=== PATIENT | male | born 1955 | race Caucasian/White ===

== ENCOUNTER 2023-12-28 13:32 | Inpatient (IN) | payer OTHER, SELFPAY ==
[2023-12-28 14:14] LABS: Absolute Basophils 0.1 K/uL (0-0.5); Absolute Eosinophils 0.2 K/uL (0-0.5); Absolute Monocytes 0.5 K/uL (0.1-1.3); Absolute Neutrophil 5.1 K/uL (1.8-8.0); Eosinophils % 2.3 % (0-4.4); MCH 31.5 pg (27.0-35.0); MCHC 34.1 g/dL (32.0-36.0); MCV 92.4 fL (80-100); MPV 8.1 fL (7.6-11.3); Monocytes % 5.9 % (3.3-12.3); Neutrophils % 64.8 % (41.7-73.7); Nucleated Red Blood Cells % 0.2 % (0-0); Platelets 224 thou/uL (152-406); RBC Red Blood Cell Count 4.76 M/uL (4.33-5.43); Red Cell Distribution Width 13.7 % (12.1-15.2)
--- NOTE | 2023-12-28 14:20 | RAD REPORT ---
EXAM DESCRIPTION: CT - Head Brain Wo Cont - 12/28/2023 2:12 pm CLINICAL HISTORY: Alteration of awareness/confusion COMPARISON: None TECHNIQUE: Computed axial tomography of the head was obtained. IV contrast was not requested. All CT scans are performed using dose optimization technique as appropriate and may include automated exposure control or mA/KV adjustment according to patient size. FINDINGS: An intracranial bleed is not seen Mild to moderate prominence of ventricles. No extra-axial fluid collection is noted. No significant hypodensity brain noted Fluid within the sinuses/ mastoids is not seen. IMPRESSION: Mild to moderate prominence of ventricles. This could be secondary to normal pressure hy drocephalus or atrophy and should correlated clinically. If patient's symptoms persist MRI of the brain would be recommended
[2023-12-28 14:28] LABS: PT Prothrombin Time 12.2 SECONDS (9.5-12.5); PTT, Activated Partial Thromb 36.9 SECONDS (24.3-36.9); Protime INR 1.11
[2023-12-28 14:39] LABS: Albumin 3.3 g/dL (3.4-5.0); Albumin/Globulin Ratio 0.8 (1.1-1.8); Anion Gap 7.4 mEq/L (5.0-15.0); Bilirubin Direct 0.1 mg/dL (0-0.2); Bilirubin Indirect, Calculated 0.5 mg/dL (0.2-0.8); Bilirubin Total 0.6 mg/dL (0.2-1.0); Globulin 3.9 g/dL (2.3-3.5); Magnesium 2.1 mg/dL (1.6-2.4); Potassium 4.4 mEq/L (3.5-5.1); Protein, Total 7.2 g/dL (6.4-8.2); Troponin High Sensitivity 7.2 pg/mL (<58.9)
--- NOTE | 2023-12-28 15:15 | RAD REPORT ---
EXAM DESCRIPTION: Kathleen Single View12/28/2023 2:51 pm CLINICAL HISTORY: Chest pain COMPARISON: none FINDINGS: The lungs appear clear of acute infiltrate. The heart is normal size IMPRESSION: No acute abnormalities displayed
[2023-12-28 15:25] LABS: Specific Gravity > 1.030 (1.005-1.030); Sqamous Epithelial None Seen /HPF (None Seen); Urine Bacteria None Seen /HPF (<20); Urine Bilirubin NEGATIVE (Negative); Urine Blood Negative (Negative); Urine Clarity Clear (Clear); Urine Color Yellow (Yellow); Urine Culture Reflex Order NOT NEEDED; Urine Glucose 1+ (Negative); Urine Ketones NEGATIVE (Negative); Urine Micro Reflex YN NO BILL MICROSCOPIC; Urine Mucus 2+ /HPF (None Seen); Urine Nitrite NEGATIVE (Negative); Urine Protein TRACE (Negative); Urine RBC <5 /HPF (None Seen); Urine Urobilinogen Normal (Normal); Urine WBC <5 /HPF (<5); Urine pH 5.5 (5.0-7.0)
[2023-12-28] MEDS ORDERED: ASPIRIN 81 MG CHEWABLE TABLET ONE (15:58)
[2023-12-28] MEDS ORDERED: FOLIC ACID 5 MG/ML VIAL ONE (16:00)
--- NOTE | 2023-12-28 16:04 | EDPHYS ---
Physician Documentation [facility] Name: Charles Trotter Age: 68 yrs Sex: Male : 1955 Arrival Date: 12/28/2023 Time: 13:32 Bed 20 Private MD: ED Physician Taylor Verdugo HPI: 12/27 14:20 This 68 yrs old Male presents to ER via EMS with complaints of AMS. sb4 12/28 08:13 daughter called EMS because she was concerned that patient was acting abnormally, sb4 moving slower than usual, couldn't do basic tasks like put on his underwear. patient has no complaints at this time, does not think he is behaving abnormally. no known history of dementia, no recent changes in medications, or any trauma. Historical: - Allergies: 12/27 13:39 No Known Allergies; db - PMHx: 13:39 Diabetes mellitus; db - Immunization history:: Adult Immunizations unknown. - Infectious Disease History:: Denies. - Social history:: Smoking status: Patient denies any tobacco usage or history of. ROS: 12/28 08:13 Constitutional: Negative for fever, chills, and weight loss, sb4 All other systems are negative, Exam: 08:13 Constitutional: This is a well developed, well nourished patient who is awake, alert, sb4 and in no acute distress. Head/Face: Normocephalic, atraumatic. Eyes: Extra-ocular motions intact. Periorbital areas with no swelling, redness, or edema. ENT: Mucous membranes moist. Cardiovascular: Regular rate and rhythm with a normal S1 and S2. Respiratory: Lungs have equal breath sounds bilaterally, clear to auscultation and percussion. No rales, rhonchi or wheezes noted. No increased work of breathing, no retractions or nasal flaring. Abdomen/GI: Soft, non-tender, no distension. Back: No spinal tenderness. No costovertebral tenderness. Full range of motion. Skin: Warm, dry with normal turgor. Normal color with no rashes, no lesions, and no evidence of cellulitis. MS/ Extremity: Pulses equal, no cyanosis. Neurovascular intact. Full, normal range of motion. Neuro: Awake and alert, GCS 15, oriented to person, place, time, and situation. Motor strength 5/5 in all extremities. Sensory grossly intact. Vital Signs: 12/27 13:30 BP 142 / 80; Pulse 89; Resp 18; Temp 98.3(O); Pulse Ox 100% ; Weight 99.79 kg; Height 5 db ft. 8 in. ; 14:13 BP 125 / 78; Pulse 84; Resp 18; Pulse Ox 99% on R/A; db 15:30 BP 120 / 70; Pulse 83; Resp 14; Pulse Ox 100% on R/A; db 17:00 BP 132 / 71; Pulse 79; Resp 16; Pulse Ox 98% on R/A; db 13:30 Body Mass Index 33.45 (99.79 kg, 172.72 cm) db NIH Stroke Scale Scores: 14:00 NIHSS Score: 0 db MDM: 13:43 Patient medically screened. sb4 15:55 Management of patient was discussed with the following: Accounting Assistant: Dr. Olivas, 4 recommends admission for stroke rule out. 12/28 08:13 Data reviewed: vital signs, nurses notes, EMS record, lab test result(s), EKG, sb4 radiologic studies, I have discussed the patient's presentation/case with the attending Emergency Department Physician; and as a result, I will discharge patient. Consideration of Admission/Observation Patient was admitted/placed on observation. Historians other than the Patient: EMS: EMS. Daughter/Son: daughter. Counseling: I had a detailed discussion with the patient and/or guardian regarding the historical points, exam findings, and any diagnostic results supporting the discharge/admit diagnosis, lab results, radiology results, the need for further work-up and treatment in the hospital. 12/27 13:49 Order name: Basic Metabolic Panel; Complete Time: 14:39 sb4 12/27 13:49 Order name: CBC with Diff; Complete Time: 14:18 sb4 12/27 13:49 Order name: Hepatic Function; Complete Time: 14:39 sb4 12/27 13:49 Order name: Magnesium; Complete Time: 14:39 sb4 12/27 13:49 Order name: Protime (+inr); Complete Time: 14:29 sb4 12/27 13:49 Order name: Ptt, Activated; Complete Time: 14:29 sb4 12/27 13:49 Order name: Troponin High Sensitivity; Complete Time: 14:39 sb4 12/27 14:30 Order name: UAM; Complete Time: 15:27 sb4 12/27 16:22 Order name: Creatine Phosphokinase EDID 12/27 16:22 Order name: Creatine Phosphokinase EDID 12/27 16:22 Order name: Lipid Profile EDMS 12/27 16:22 Order name: Lipid Profile EDMS 12/27 17:55 Order name: Glucose, Ancillary Testing; Complete Time: 17:56 EDMS 12/27 13:49 Order name: CT Head Brain wo Cont; Complete Time: 14:21 sb4 12/27 13:49 Order name: Chest Single View XRAY; Complete Time: 15:18 sb4 12/27 15:59 Order name: Head Angio CT sb4 12/27 16:22 Order name: Echo with Doppler EDMS 12/27 16:22 Order name: Stroke Protocol EDID 12/27 16:22 Order name: Carotid Artery Bilateral EDMS 12/27 17:57 Order name: CT; Complete Time: 17:59 EDMS 12/27 17:59 Order name: CT; Complete Time: 17:59 EDMS 12/27 13:49 Order name: EKG; Complete Time: 13:49 sb4 12/27 16:22 Order name: IRF Screen EDID 12/27 13:49 Order name: Cardiac monitoring; Complete Time: 13:55 sb4 12/27 13:49 Order name: EKG - Nurse/Tech; Complete Time: 13:50 sb4 12/27 13:49 Order name: IV Saline Lock; Complete Time: 14:24 sb4 12/27 13:49 Order name: Labs collected and sent; Complete Time: 14:24 sb4 12/27 13:49 Order name: NPO; Complete Time: 14:24 sb4 12/27 13:49 Order name: O2 Per Protocol; Complete Time: 13:55 sb4 12/27 13:49 Order name: O2 Sat Monitoring; Complete Time: 13:55 sb4 EC/28 13:50 Rate is 86 beats/min. Rhythm is regular, Normal Sinus Rhythm with Right bundle branch sb4 block. Left axis deviation noted. WA interval is normal at 184 msec. QRS interval is normal at 124 msec. QT interval is normal at 382 msec. Interpreted by me. Reviewed by me. Administered Medications: 16:02 Drug: Aspirin PO 81 mg PO once Route: PO; db 18:50 Follow up: Response: No adverse reaction db 16:02 Drug: foLIC Acid IVPB 1 mg IVPB once Route: IVPB; Site: left antecubital; db 18:50 Follow up: Response: No adverse reaction; IV Status: Completed infusion db Disposition: 18:01 I reviewed the patient's care provided by the Advanced Practice Provider and agree with gb1 the diagnosis and treatment plan. Disposition Summary: 12/28/23 16:03 Hospitalization Ordered Notes: Hospitalization Status: Observation sb4 Provider: Guerline Lea sb4 Location: Telemetry/MedSurg (observation) sb4 Condition: Fair sb4 Problem: new sb4 Symptoms: are unchanged sb4 Bed/Room Type: Standard sb4 Room Assignment: 403(12/28/23 17:58) ja1 Diagnosis - CVA rule out sb4 Forms: - Medication Reconciliation Form sb4 - SBAR form sb4 - Leadership Thank You Letter sb4 NIH Stroke Scale - NIH Stroke Score Date: 12/28/2023 Time: 14:00 Total Score = 0 10. Dysarthria (speech clarity - read or repeat words) - 0(Normal) 11. Extinction and Inattention (visual/tactile/auditory/spatial/personal) - 0(No abnormality) 1a. Level of Consciousness (LOC) - 0(Alert) 1b. Level of Consciousness (LOC) (Month \T\ Age) - 0(Both) 1c. LOC Commands (Open \T\ Closes Eyes/Mounter Clarinets) - 0(Both) 2. Best Gaze (Lateral Gaze Paresis) - 0(Normal) 3. Visual Field Loss - 0(No visual loss) 4. Facial Palsy - 0(Normal) 5a. Left Arm: Motor (10-second hold) - 0(No drift) 5b. Right Arm: Motor (10-second hold) - 0(No drift) 6a. Left Leg: Motor (5-second hold - always test supine) - 0(No drift) 6b. Right Leg: Motor (5-second hold - always test supine) - 0(No drift) 7. Limb Ataxia (finger/nose \T\ heel/jason - test with eyes open) - 0(Absent) 8. Sensory Loss (pinprick arms/legs/face) - 0(Normal) 9. Best Language: Aphasia (description/naming/reading) - 0(No aphasia) Initials: db Signatures: Dispatcher [employer] EDMS Gunner Arteaga RN RN ja1 Fartun Balbuena, RN RN Mercy De La O PA-C PA-C sb4 Taylor Verdugo MD MD gb1 Corrections: (The following items were deleted from the chart) 13:49 13:49 BASIC METABOLIC PANEL+C.LAB.BRZ ordered. EDMS EDMS 13:49 13:49 CBC+H.LAB.BRZ ordered. EDMS EDMS 13:49 13:49 HEPATIC FUNCTION+C.LAB.BRZ ordered. EDMS EDMS 13:49 13:49 MAGNESIUM+C.LAB.BRZ ordered. EDMS EDMS 13:49 13:49 PROTIME (+INR)+COAG.LAB.BRZ ordered. EDMS EDMS 13:49 13:49 PTT, ACTIVATED+COAG.LAB.BRZ ordered. EDMS EDMS 13:49 13:49 Troponin High Sensitivity+C.LAB.BRZ ordered. EDMS EDMS 15:59 15:59 Neck Angio+CT.RAD.BRZ ordered. EDMS EDMS 17:58 16:03 sb4 ja1
--- NOTE | 2023-12-28 16:04 | ER ---
Nurse's Notes [facility] Name: Charles Trotter Age: 68 yrs Sex: Male : 1955 Arrival Date: 12/28/2023 Time: 13:32 Bed 20 Private MD: Diagnosis: CVA rule out Presentation: 12/27 13:30 Chief complaint: EMS states: SLIGHT LOC, SLOWER TODAY, STRUGGLING TO GET DRESSED PER db DAUGHTER. PT TAKING OZEMPIC AND HAS HAD DIARRHEA. DENIES PAIN. Coronavirus screen: Vaccine status: Patient reports being unvaccinated. Client denies travel out of the [place] in the last 14 days. At this time, the client does not indicate any symptoms associated with coronavirus-19. Ebola Screen: Patient negative for fever greater than or equal to 101.5 degrees Fahrenheit, and additional compatible Ebola Virus Disease symptoms Patient denies exposure to infectious person. Patient denies travel to an Ebola-affected area in the 21 days before illness onset. No symptoms or risks identified at this time. Initial Sepsis Screen: Does the patient meet any 2 criteria? No. Patient's initial sepsis screen is negative. Does the patient have a suspected source of infection? No. Patient's initial sepsis screen is negative. Initial Sepsis Screen: Does the patient meet any 2 criteria?. Risk Assessment: Do you want to hurt yourself or someone else? Patient reports no desire to harm self or others. Onset of symptoms was December 28, 2023. 13:30 Method Of Arrival: EMS: [facility] db 13:30 Acuity: SRINATH 2 db Triage Assessment: 13:39 General: Appears in no apparent distress. comfortable, Behavior is calm, cooperative. db Pain: Denies pain. Neuro: Level of Consciousness is awake, alert, obeys commands, Oriented to person, place, time, situation. Historical: - Allergies: 13:39 No Known Allergies; db - PMHx: 13:39 Diabetes mellitus; db - Immunization history:: Adult Immunizations unknown. - Infectious Disease History:: Denies. - Social history:: Smoking status: Patient denies any tobacco usage or history of. Screenin:39 [facility] ED Fall Risk Assessment (Adult) History of falling in the last 3 months, db including since admission No falls in past 3 months (0 pts) Confusion or Disorientation No (0 pts) Intoxicated or Sedated No (0 pts) Impaired Gait No (0 pts) Mobility Assist Device Used No (0 pt) Altered Elimination No (0 pt) Score/Fall Risk Level 0 - 2 = Low Risk Oriented to surroundings, Maintained a safe environment. Abuse screen: Denies threats or abuse. Denies injuries from another. Nutritional screening: No deficits noted. Tuberculosis screening: No symptoms or risk factors identified. Assessment: 13:39 Reassessment: Patient appears in no apparent distress at this time. Patient and/or db family updated on plan of care and expected duration. Pain level reassessed. Patient is alert, oriented x 3, equal unlabored respirations, skin warm/dry/pink. SEE TRIAGE FOR INITIAL ASSESSMENT. 14:00 VAN Scoring: Arm Drift: Patients demonstrates NO arm weakness. Patient is VAN Negative. db Visual Disturbance: No visual disturbance noted. Aphasia: No aphasia noted. Neglect: No neglect noted. Jonelle Swallow Protocol Brief Cognitive Screen What is your name? Normal, Where are you right now? Normal, What year is it? Normal. Oral Mechanism Examination Facial Symmetry: Normal, Motion: Normal, Lip Closure: Normal, Oral Mechanism Result: Normal. 3 oz Water Swallow Challenge: Pt able to drink all water without stopping, coughing, choking or throat clearing: Yes Result: PASS MD Notified: Mercy Hood PA-C. 15:00 Reassessment: Patient appears in no apparent distress at this time. Patient and/or db family updated on plan of care and expected duration. Pain level reassessed. Patient is alert, oriented x 3, equal unlabored respirations, skin warm/dry/pink. PATIENT AMBULATORY TO RESTROOM. General: Appears in no apparent distress. comfortable, Behavior is calm, cooperative. Neuro: Level of Consciousness is awake, alert, obeys commands, Oriented to person, place, time, situation. Respiratory: Airway is patent Respiratory effort is even, unlabored, Respiratory pattern is regular, symmetrical. 16:00 Reassessment: Patient appears in no apparent distress at this time. Patient and/or db family updated on plan of care and expected duration. Pain level reassessed. Patient is alert, oriented x 3, equal unlabored respirations, skin warm/dry/pink. Reassessment: SPEAKING WITH FAMILY. General: Appears in no apparent distress. comfortable. Pain: Denies pain. 17:00 Reassessment: Patient appears in no apparent distress at this time. Patient and/or db family updated on plan of care and expected duration. Pain level reassessed. Patient is alert, oriented x 3, equal unlabored respirations, skin warm/dry/pink. 18:37 Reassessment: SEE [facility] FOR CONTINUED ADMISSION DOCUMENTATION. db Vital Signs: 13:30 BP 142 / 80; Pulse 89; Resp 18; Temp 98.3(O); Pulse Ox 100% ; Weight 99.79 kg; Height 5 db ft. 8 in. ; 14:13 BP 125 / 78; Pulse 84; Resp 18; Pulse Ox 99% on R/A; db 15:30 BP 120 / 70; Pulse 83; Resp 14; Pulse Ox 100% on R/A; db 17:00 BP 132 / 71; Pulse 79; Resp 16; Pulse Ox 98% on R/A; db 13:30 Body Mass Index 33.45 (99.79 kg, 172.72 cm) db NIH Stroke Scale Scores: 14:00 NIHSS Score: 0 db ED Course: 13:36 Patient arrived in ED. db 13:39 Triage completed. db 13:39 Arm band placed on Patient placed in an exam room. db 13:39 Patient has correct armband on for positive identification. Bed in low position. Call db light in reach. Side rails up X 1. Provided Education on: DISCHARGE. Pulse ox on. NIBP on. 13:43 [facility]cy Hood [facility]. sb4 13:43 Taylor Verdugo MD is Attending Physician. sb4 13:50 Fartun Balbuena, RN is Primary Nurse. db 13:54 EKG done, by ED staff, reviewed by Mercy Hood PA-C. jr12 14:06 Basic Metabolic Panel Sent. jr12 14:06 CBC with Diff Sent. jr12 14:06 Hepatic Function Sent. jr12 14:06 Magnesium Sent. jr12 14:06 Protime (+inr) Sent. jr12 14:06 Ptt, Activated Sent. jr12 14:06 Troponin High Sensitivity Sent. jr12 14:13 CT Head Brain wo Cont In Process Unspecified. EDMS 14:53 Chest Single View XRAY In Process Unspecified. EDMS 16:03 Guerline Lea MD is Hospitalizing Provider. sb4 17:[address] Patient moved back from [address]. db 18:37 Warm blanket given. db 18:37 No provider procedures requiring assistance completed. Patient admitted, IV remains in db place. Administered Medications: 16:02 Drug: Aspirin PO 81 mg PO once Route: PO; db 18:50 Follow up: Response: No adverse reaction db 16:02 Drug: foLIC Acid IVPB 1 mg IVPB once Route: IVPB; Site: left antecubital; db 18:50 Follow up: Response: No adverse reaction; IV Status: Completed infusion db Medication: 13:39 VIS not applicable for this client. db Outcome: 16:03 Decision to Hospitalize by Provider. sb4 18:37 Admitted to ER Hold. Please see wishkicker for further documentation. db 18:37 Condition: stable 18:37 Instructed on the need for admit, 18:50 Patient left the ED. db NIH Stroke Scale - NIH Stroke Score Date: 12/28/2023 Time: 14:00 Total Score = 0 10. Dysarthria (speech clarity - read or repeat words) - 0(Normal) 11. Extinction and Inattention (visual/tactile/auditory/spatial/personal) - 0(No abnormality) 1a. Level of Consciousness (LOC) - 0(Alert) 1b. Level of Consciousness (LOC) (Month \T\ Age) - 0(Both) 1c. LOC Commands (Open \T\ Closes Eyes/Credit Support Specialist) - 0(Both) 2. Best Gaze (Lateral Gaze Paresis) - 0(Normal) 3. Visual Field Loss - 0(No visual loss) 4. Facial Palsy - 0(Normal) 5a. Left Arm: Motor (10-second hold) - 0(No drift) 5b. Right Arm: Motor (10-second hold) - 0(No drift) 6a. Left Leg: Motor (5-second hold - always test supine) - 0(No drift) 6b. Right Leg: Motor (5-second hold - always test supine) - 0(No drift) 7. Limb Ataxia (finger/nose \T\ heel/jason - test with eyes open) - 0(Absent) 8. Sensory Loss (pinprick arms/legs/face) - 0(Normal) 9. Best Language: Aphasia (description/naming/reading) - 0(No aphasia) Initials: db Signatures: Dispatcher [employer] EDMS Fartun Balbuena RN RN Mercy De La O PA-C PAYuly sb4 Pooja Wagner jr12 Corrections: (The following items were deleted from the chart) 13:40 13:39 No provider procedures requiring assistance completed. nilsa ash
--- NOTE | 2023-12-28 16:11 | P.HP ---
Certification for Inpatient Patient admitted to: Inpatient With expected LOS: >2 Midnights Patient will require the following post-hospital care: None Practitioner: I am a practitioner with admitting privileges, knowledge of patient current condition, hospital course, and medical plan of care. Services: Services provided to patient in accordance with Admission requirements found in Title 42 Section 412.3 of the Code of Federal Regulations <Zabrina Segal - Last Filed: 12/28/23 17:40> Patient History Date of Service: 12/28/23 Primary Care Provider: [facility] Reason for admission: Neurostatus change History of Present Illness: Mr. Ramirez is a 68-year-old gentleman with a past medical history of diabetes, hypertension, hyperlipidemia, and tremor. It does not sound like he regularly sees a PCP. His daughter has noted for the last week he seems kind of "off" with periods of blank stare. Today there was a 2-hour period which he became so confused that he was unable to figure out how to put his clothes on, he put his shirt on backwards, turned around and dropped a glass, had a small bowel movement accident, and seemed generally unable to communicate. Speech changes were not appreciated. The patient denies visual changes, speech changes, chest pain, palpitations, dizziness, nausea, vomiting, or fever. He was brought to the emergency department, to rule out a stroke. In the emergency room he is awake, alert, and cooperative. His GCS is 15. He has no appreciable weakness, but he is slow to answer and wants to say the right thing and possibly hide any confusion. On laboratory evaluation, CBC is unremarkable with no anemia, Chem-7 is unremarkable, hepatic function normal. Urine shows mild volume depletion. On imaging, CT brain without impression "mild to moderate prominence of ventricles. This could be secondary to normal pressure hydrocephalus or atrophy and should be correlated clinically. If patient's symptoms persist MRI of the brain would be recommended." He will be admitted for further examination and treatment with further consultation with Dr. Olivas. Home medications list reviewed: Yes - Past Medical/Surgical History Diabetic: Yes -: DM -: HTN -: HLD -: Tremor Psychosocial/ Personal History: Patient is . He lives with his daughter, Elaine, and son-in-law - Social History Smoking Status: Former smoker Alcohol use: No CD- Drugs: No Caffeine use: Yes Place of Residence: Home <Zabrina Segal - Last Filed: 12/28/23 17:40> Date of Service: 12/28/23 <Guerline Lea - Last Filed: 12/28/23 18:08> Allergies No Known Allergies Allergy (Unverified 12/28/23 17:30) Review of Systems 10-point ROS is otherwise unremarkable General: Weakness, As per HPI Gastrointestinal: Diarrhea (unknown if from Ozempic) Neurological: Incoordination, Confusion, As per HPI <Zabrina Segal - Last Filed: 12/28/23 17:40> Physical Examination - Physical Exam General: Alert, In no apparent distress, Oriented x3 HEENT: Atraumatic, Normocephalic Neck: Supple Respiratory: Normal air movement Cardiovascular: No edema, Normal pulses, Regular rate/rhythm Capillary refill: <2 Seconds Gastrointestinal: Normal bowel sounds Musculoskeletal: No clubbing Integumentary: No rashes Neurological: Normal speech, Normal tone, Sensation intact, Normal affect, Other (seems dazed) Lymphatics: No axilla or inguinal lymphadenopathy External genitalia: Deferred Rectal: Deferred - Studies Laboratory Data (last 24 hrs) 12/28/23 12/28/23 12/28/23 14:02 14:02 14:02 WBC 7.80 Hgb 15.0 Hct 44.0 Plt Count 224 PT 12.2 INR 1.11 APTT 36.9 Sodium 135 L Potassium 4.4 BUN 21 H Creatinine 1.23 Glucose 154 H Magnesium 2.1 Total Bilirubin 0.6 AST 20 ALT 49 Alkaline Phosphatase 102 <Zabrina Segal - Last Filed: 12/28/23 17:40> - Studies Laboratory Data (last 24 hrs) 12/28/23 12/28/23 12/28/23 14:02 14:02 14:02 WBC 7.80 Hgb 15.0 Hct 44.0 Plt Count 224 PT 12.2 INR 1.11 APTT 36.9 Sodium 135 L Potassium 4.4 BUN 21 H Creatinine 1.23 Glucose 154 H Magnesium 2.1 Total Bilirubin 0.6 AST 20 ALT 49 Alkaline Phosphatase 102 <Guerline Lea - Last Filed: 12/28/23 18:08> Assessment and Plan - Plan TIA/CVA Carotid doppler ECHO MRI brain protocol Consult Dr. Olivas Aspirin 162mg po daily Folic acid 1mg IVP daily HTN Propranolol 40mg po BID Lisinopril 40mg po daily Amlodipine 10mg po daily Lasix 20mg po daily HLD Atorvastatin 80mg po q HS DM fsbs with mild sliding scale coverage hold Ozempic, Glipizide for now Tremor Primidone 50mg 2 po daily DVT/GI prophylaxis: Lovenox, ASA Protonix 40mg IVP daily - Advance Directives Does patient have a Living Will: No Does patient have a Durable POA for Healthcare: No <Zabrina Segal Sunil - Last Filed: 12/28/23 17:40> - Plan Pt seen and examined. I agree with the note by the PASTORAL ASSISTANT. Pt is 68 yo male with past medical hsitroy of DM who presents with AMS. His daughter noticed that pt could not put on his underwear or respond appropriately to questions and she brought him to the ER for evaluation. On admission, lab studies were unremarkable except Cr 1.23. CT head showed mild to moderate prominence of ventricles. CXR is unremarkable. At bedside, pt is in NAD. 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 he does not have urinary incontinece or ataxia. CT head shows mild to moderate prominience of the ventricles. Will need to r/o CVA. F/u MRI brain. Consulted Neurology. allow permissive htn. Continue aspirin and statin. Consult PTt/OT LYLA: Continue IVF, avoid nephrotoxins and monitor renal function DM: continue accuchek, SSI and ADA diet DVT ppx: SCD Code: full <Guerline Lea - Last Filed: 12/28/23 18:08>
[2023-12-28] MEDS: INSULIN REGULAR (HUMAN) 100 UNIT/ML SQ SCH (16:30)
[2023-12-28] MEDS ORDERED: NA CHLORIDE 0.9% 1,000 ML ONE (17:56)
[2023-12-28 17:57] VITALS: BMI 33.4
--- NOTE | 2023-12-28 17:57 | RAD REPORT ---
EXAM DESCRIPTION: Karla Angio12/28/2023 5:32 pm CLINICAL HISTORY: Confusion possible CVA COMPARISON: None TECHNIQUE: 100 cc Isovue [address] angiogram of the neck was obtained. 3D MIPS reconstruction performed. All CT scans are performed using dose optimization technique as appropriate and may include automated exposure control or mA/KV adjustment according to patient size. FINDINGS: Visualized aortic arch and great vessels unremarkable Mild plaque within common carotid, internal carotid, vertebral and external carotid arteries bilatera lly No dissection is seen. No high-grade stenosis Nascet crieria Mild stenosis 0 to 49 % Moderate stenosis 50-69% Severe stenosis 70-99% IMPRESSION: No significant abnormality is displayed
--- NOTE | 2023-12-28 17:58 | RAD REPORT ---
EXAM DESCRIPTION: CTHead angio12/28/2023 5:32 pm CLINICAL HISTORY: Confusion/possible CVA COMPARISON: none TECHNIQUE: 100 cc Isovue [address] angiogram of the head was obtained. 3D MIPS reconstruction performed. All CT scans are performed using dose optimization technique as appropriate and may include automated exposure control or mA/KV adjustment according to patient size. FINDINGS: Diminished opacification and narrowing of a distal branch of the M2 and M3 segments left m iddle cerebral artery. A filling defect within the artery is not seen The basilar, anterior cerebral, right middle cerebral and posterior cerebral arteries do not demonstr ate a significant stenosis Mild calcified plaque distal internal carotid arteries An aneurysm is not seen origin right posterior cerebral artery IMPRESSION: Diminished opacification and narrowing of a distal branch of the M2 and M3 segment left middle cerebral artery.
[2023-12-28] MEDS: NA CHLORIDE 0.9% 1,000 ML IV SCH (18:00)
[2023-12-28] MEDS: PROPRANOLOL HCL 40 MG TAB PO SCH (20:18)
[2023-12-28] MEDS: ATORVASTATIN 80 MG TAB PO SCH (20:18)
--- NOTE | 2023-12-28 21:22 | RAD REPORT ---
EXAM DESCRIPTION: USCarotid Artery Bilateral12/28/2023 8:35 pm CLINICAL HISTORY: CVA COMPARISON: December 28, 2023 CT angiogram FINDINGS: The velocity of the right internal carotid artery equals 104 cm/sec. The right ICA/CCA rat io normal The velocity of the left internal carotid artery equals 74 cm/sec. The left ICA/CCA ratio normal Mild plaque is present within the carotid arteries. The vertebral arteries demonstrate antegrade flow IMPRESSION: Mild plaque within the carotid arteries without evidence of a hemodynamically significan t stenosis NASCET criteria used. Mild 0-49% stenosis Moderate 50-69% stenosis Severe 70-99% stenosis
[2023-12-29] MEDS: ONDANSETRON 4 MG/2 ML VIAL IV PRN ×2 (01:46→13:29)
--- NOTE | 2023-12-29 07:56 | P.PN ---
Subjective Date of Service: 12/30/23 Primary Care Provider: [facility] Chief Complaint: Neurostatus change Presented with confusion, CT brain without impression "mild to moderate prominence of ventricles. This could be secondary to normal pressure hydrocephalus or atrophy and should be correlated clinically. further consultation with Dr. Olivas. MRI nonhemorragic CVA, PT/OT to eval plan to discharge to outpatient rehab-independent with transfer With Doppler ordered - Physical Exam General: Alert, In no apparent distress, Oriented x3 HEENT: Atraumatic, Normocephalic Neck: Supple Respiratory: Normal air movement Cardiovascular: No edema, Normal pulses, Regular rate/rhythm Capillary refill: <2 Seconds Gastrointestinal: Normal bowel sounds Musculoskeletal: No clubbing Integumentary: No rashes Neurological: Normal speech, Normal tone, Sensation intact, Normal affect, Review of Systems Per HPI Physical Examination - Vital Signs Temperature: 97.2 F Blood Pressure: 125/61 Pulse: 77 Respirations: 16 Pulse Ox (%): 96 - Studies Laboratory Data (last 24 hrs) 12/28/23 12/28/23 12/28/23 14:02 14:02 14:02 WBC 7.80 Hgb 15.0 Hct 44.0 Plt Count 224 PT 12.2 INR 1.11 APTT 36.9 Sodium 135 L Potassium 4.4 BUN 21 H Creatinine 1.23 Glucose 154 H Magnesium 2.1 Total Bilirubin 0.6 AST 20 ALT 49 Alkaline Phosphatase 102 Assessment And Plan - Plan Assessment and Plan TIA/CVA Abnormal CT of head CT IMPRESSION: Mild to moderate prominence of ventricles. This could be secondary to normal pressure hydrocephalus or atrophy and should correlated clinically Carotid doppler ECHO ordered 12/28 Plan to discharge to outpatient rehab MRI brain protocol 12/28 FINDINGS: No intracranial hemorrhage, hydrocephalus or extra-axial fluid collections. Moderate generalized brain atrophy. There are multiple areas of acute CVA seen in the left frontoparietal and left temporo-occipital regions. The largest area of infarction in the left insular region measures approximately 28 mm. Additional areas of infarction seen along the margin of the left occipital horn measures in totality 5 cm. Several areas of acute infarcts seen adjacent to posterior left lateral ventricle. No hemorrhagic component seen. No midline shift is evident. No right-sided infarct pattern. Midline structures are normally formed. Mastoid air cells and paranasal sinuses are clear. IMPRESSION: Moderate areas of nonhemorrhagic acute CVA are seen involving the left cerebrum as detailed. Consult Dr. Olivas Aspirin 162mg po daily Folic acid 1mg IVP daily CT head showed mild to moderate prominence of ventricles. CXR is unremarkable. At bedside, pt is in NAD. Acute kidney injury Gentle IV fluid HTN Propranolol 40mg po BID Lisinopril 40mg po daily Amlodipine 10mg po daily Lasix 20mg po daily HLD Atorvastatin 80mg po q HS DM fsbs with mild sliding scale coverage hold Ozempic, Glipizide for now Tremor Primidone 50mg 2 po daily DVT/GI prophylaxis: Lovenox, ASA Protonix 40mg IVP daily Cardiac diet Discharge Plan: Home Critical Care: No Time Spent Managing PTS Care (In Minutes): 35
[2023-12-29] MEDS: PRIMIDONE 50 MG TAB PO SCH (08:11)
[2023-12-29] MEDS: lisinopriL 20 MG TAB PO SCH (08:12)
[2023-12-29] MEDS: ASPIRIN EC 81 MG TAB PO SCH (08:12)
[2023-12-29] MEDS: FUROSEMIDE 20 MG TABLET PO SCH (08:13)
[2023-12-29] MEDS: CLOPIDOGREL 75 MG TABLET PO SCH (08:13)
[2023-12-29] MEDS: AMLODIPINE 10 MG TAB PO SCH (08:13)
[2023-12-29] MEDS ORDERED: FOLIC ACID 5 MG/ML VIAL IVP SCH (09:00)
[2023-12-29] MEDS ORDERED: PRIMIDONE 50 MG TAB PO SCH (09:00)
[2023-12-29] MEDS: FOLIC ACID 1 MG in NA CHLORIDE 0.9% 50 ML IV SCH (10:16)
--- NOTE | 2023-12-29 12:02 | RAD REPORT ---
EXAM DESCRIPTION: MRI - Brain Wo Cont - 12/29/2023 11:47 am CLINICAL HISTORY: Neuro change Headache, drowsiness, CVA symptomology COMPARISON: Head angio dated 12/28/2023; Neck Angio dated 12/28/2023; Head Brain Wo Cont dated 12/28/19 24 TECHNIQUE: Multi-sequence, multiplanar MR imaging of the brain was performed without contrast. FINDINGS: No intracranial hemorrhage, hydrocephalus or extra-axial fluid collections. Moderate gener alized brain atrophy. There are multiple areas of acute CVA seen in the left frontoparietal and left temporo-occipital regions. The largest area of infarction in the left insular region measures approxi mately 28 mm. Additional areas of infarction seen along the margin of the left occipital horn measure s in totality 5 cm. Several areas of acute infarcts seen adjacent to posterior left lateral ventricle . No hemorrhagic component seen. No midline shift is evident. No right-sided infarct pattern. Midline structures are normally formed. Mastoid air cells and paranasal sinuses are clear. IMPRESSION: Moderate areas of nonhemorrhagic acute CVA are seen involving the left cerebrum as detai led.
--- NOTE | 2023-12-29 12:57 | EKG ---
Test Date: 2023-12-28 Test Time: 13:47:59 Cleat Maker: SCOTT MEASUREMENT RESULTS: Intervals: Rate: 86 CO: 184 QRSD: 124 QT: 382 QTc: 457 [place]: P: 69 CO: 184 QRS: -36 T: 61 INTERPRETIVE STATEMENTS: Normal sinus rhythm Left axis deviation Right bundle branch block Abnormal ECG No previous ECG available for comparison Electronically Signed On 12-29-23 12:54:59 CDT by Devendra Pressley
[2023-12-29] MEDS: METOCLOPRAMIDE 10 MG/2mL INJ IV PRN (20:49)
[2023-12-30 05:48] VITALS: TEMP 97.2
[2023-12-30 07:02] LABS: Albumin 3.1 g/dL (3.4-5.0); Phosphorus 2.8 mg/dL (2.5-4.9)
[2023-12-30] MEDS: FOLIC ACID 1 MG TABLET PO SCH (08:49)
--- NOTE | 2023-12-30 09:19 | P.DS ---
Admission Date: 12/28/23 Discharge Date: 12/30/23 Primary Care Provider: [facility] Disposition: ROUTINE DISCHARGE Discharge Condition: GOOD Reason for Admission: Neurostatus change Brief History of Present Illness: Mr. Ramirez is a 68-year-old gentleman with a past medical history of diabetes, hypertension, hyperlipidemia, and tremor. It does not sound like he regularly sees a PCP. His daughter has noted for the last week he seems kind of "off" with periods of blank stare. Today there was a 2-hour period which he became so confused that he was unable to figure out how to put his clothes on, he put his shirt on backwards, turned around and dropped a glass, had a small bowel movement accident, and seemed generally unable to communicate. Speech changes were not appreciated. The patient denies visual changes, speech changes, chest pain, palpitations, dizziness, nausea, vomiting, or fever. He was brought to the emergency department, to rule out a stroke. In the emergency room he is awake, alert, and cooperative. His GCS is 15. He has no appreciable weakness, but he is slow to answer and wants to say the right thing and possibly hide any confusion. On laboratory evaluation, CBC is unremarkable with no anemia, Chem-7 is unremarkable, hepatic function normal. Urine shows mild volume depletion. On imaging, CT brain without impression "mild to moderate prominence of ventricles. This could be secondary to normal pressure hydrocephalus or atrophy and should be correlated clinically. If patient's symptoms persist MRI of the brain would be recommended." He will be admitted for further examination and treatment with further consultation with Dr. Olivas. - Physical Exam General: Alert, In no apparent distress, Oriented x3 HEENT: Atraumatic, Normocephalic Neck: Supple Respiratory: Normal air movement Cardiovascular: No edema, Normal pulses, Regular rate/rhythm Capillary refill: <2 Seconds Gastrointestinal: Normal bowel sounds Musculoskeletal: No clubbing Integumentary: No rashes Neurological: Normal speech, Normal tone, Sensation intact, Normal affect, Other (seems dazed) Lymphatics: No axilla or inguinal lymphadenopathy Hospital Course: 68-year-old male with a past medical history diabetes, hypertension, hyperlipidemia, and tremor. It does not sound like he regularly sees a PCP. His daughter has noted for the last week he seems kind of "off" was evaluated by. By neurology. Noted abnormal, CT brain without impression "mild to moderate prominence of ventricles. This could be secondary to normal pressure hydrocephalus or atrophy and should be correlated clinically. MRI of the brain recommended. MR. Trotter was admitted for further examination and treatment with further consultation with Dr. Olivas. Was evaluated and treated by physical therapy. Patient tolerating diet, stable for discharge to home with follow-up appointment with primary care physician. Had abnormal CT/MRI. MRI brain protocol 12/28 FINDINGS: No intracranial hemorrhage, hydrocephalus or extra-axial fluid collections. Moderate generalized brain atrophy. There are multiple areas of acute CVA seen in the left frontoparietal and left temporo-occipital regions. The largest area of infarction in the left insular region measures approximately 28 mm. Additional areas of infarction seen along the margin of the left occipital horn measures in totality 5 cm. Several areas of acute infarcts seen adjacent to posterior left lateral ventricle. No hemorrhagic component seen. No midline shift is evident. No right-sided infarct pattern. Midline structures are normally formed. Mastoid air cells and paranasal sinuses are clear. IMPRESSION: Moderate areas of nonhemorrhagic acute CVA are seen involving the left cerebrum as detailed. PROBLEM: Acute nonhemorrhagic CVA Hypertension resume home med Hyperlipidemia resume appropriate home medication Diabetes previously on Ozempic Tremors Primidone 50mg 2 po daily Follow-up with neurology Dr. Olivas outpatient 1 to 2-week Outpatient physical therapy set up for discharge Continue home medicines as previously prescribed GOAL: Clear understanding of disease process INSTRUCTIONS: Physician Discharge Instructions: -Follow-up with PCP in 1 to 2 weeks -Please call Dr. Cordero at [phone] if any questions regarding hospital stay -Please call nursing station at [phone] if any nursing or medication questions -Return to the emergency room if symptoms worsen Diet: ADA, low sodium Activity: Fall precautions Vital Signs/Physical Exam: Temp Pulse Resp BP Pulse Ox 97.2 F 77 16 125/61 96 12/30/23 09:11 12/30/23 09:11 12/30/23 09:11 12/30/23 09:11 12/30/23 09:11 Laboratory Data at Discharge: WBC 7.80 thou/uL (4.3-10.9) 12/28/23 14:02 Hgb 15.0 g/dL (13.6-17.9) 12/28/23 14:02 Hct 44.0 % (39.6-49.0) 12/28/23 14:02 Plt Count 224 thou/uL (152-406) 12/28/23 14:02 PT 12.2 SECONDS (9.5-12.5) 12/28/23 14:02 INR 1.11 12/28/23 14:02 APTT 36.9 SECONDS (24.3-36.9) 12/28/23 14:02 Sodium 134 mEq/L (136-145) L 12/30/23 06:25 Potassium 4.0 mEq/L (3.5-5.1) 12/30/23 06:25 BUN 11 mg/dL (7-18) 12/30/23 06:25 Creatinine 1.04 mg/dL (0.70-1.30) 12/30/23 06:25 Glucose 159 mg/dL (74-106) H 12/30/23 06:25 Phosphorus 2.8 mg/dL (2.5-4.9) 12/30/23 06:25 Magnesium 2.0 mg/dL (1.6-2.4) 12/30/23 06:25 Total Bilirubin 0.6 mg/dL (0.2-1.0) 12/28/23 14:02 AST 20 U/L (15-37) 12/28/23 14:02 ALT 49 U/L (16-61) 12/28/23 14:02 Alkaline Phosphatase 102 U/L (45-117) 12/28/23 14:02 Triglycerides 98 mg/dL (<150) 12/29/23 06:19 Cholesterol 145 mg/dL (<200) 12/29/23 06:19 HDL Cholesterol 26 mg/dL (40-60) L 12/29/23 06:19 Cholesterol/HDL Ratio 5.58 12/29/23 06:19 Home Medications: Amlodipine [Norvasc] 10 mg PO DAILY 12/28/23 Atorvastatin Calcium [Lipitor] 40 mg PO BEDTIME 12/28/23 Furosemide [Lasix] 20 mg PO DAILY 12/28/23 Gabapentin [Gralise] 600 mg PO BEDTIME 12/28/23 Insulin Glargine,Hum.rec.anlog [Lantus Solostar] 20 unit SQ BID 12/28/23 Lisinopril [Zestril] 40 mg PO DAILY 12/28/23 Ondansetron [Zofran] 4 mg PO Q8HP PRN 12/28/23 Primidone [Mysoline] 100 mg PO DAILY 12/28/23 Propranolol [Inderal] 40 mg PO BID 12/28/23 Semaglutide [Ozempic] 2 mg SQ EVERY 7TH DAY 12/28/23 Physician Discharge Instructions: [facility] [place] [address] [id number] PT/OT/ST/Cardiac Rehab Referral faxed on 12/29/23 - pending insurance authorization for physical therapy and speech therapy Diet: Low sodium Activity: Fall precautions Followup: [facility] [Primary Care Provider] - Bala Olivas MD [ASSOCIATE-ACTIVE - CAN ADMIT] - Time spent managing pt's care (in minutes): 55
[2023-12-30 13:10] VITALS: BP 159/81
[2023-12-30 14:27] VITALS: O2SAT 98
--- NOTE | 2023-12-30 22:09 | CON ---
Reason For Consultation: Consultation called because of a possible stroke. History Of Present Illness: Mr. Garcia is a 68-year-old patient with diabetes mellitus, hypertensi on, dyslipidemia, chronic tremor, who developed confusion, disorientation, and a blank stare. When nan child evaluated him, he actually saw what was happening. He was unable to do ordinary activities suc h as putting his clothes on. He actually ended up putting his shirt on backwards, dropped the glass, and had a small bowel movement. He was brought into the emergency room, was awake, alert, and coope rative. No apparent focal weakness, slow to answer questions, and appears to be mildly confused. Hi s imaging study included head CT scan and CT angiogram of the head and neck. Those studies did not r eveal any acute ischemic or hemorrhagic change. However, the study did note [id number] promine nce of ventricles and raised possibility of normal pressure hydrocephalus or atrophy. However, the b rain MRI which was done on the showed moderate generalized brain atrophy. There were multiple a reas of acute CVA in the left frontoparietal and left temporoparietal regions. The largest area of i nfarct on the left insula measured approximately 28 mm. There were also areas of infarct along the m argin of the left occipital horn measuring total of 5 cm. There were several areas of acute infarct adjacent to the posterior left lateral ventricle. The worry is that the patient is having all left-s ided thromboembolic events. However, despite the patient's scan, his clinical picture is actually mu ch less complicated. Some difficulty with his expression, but no obvious or apparent significant wea knesses noted. The CT angiogram of his neck showed no significant abnormalities. CT angiogram study of his head showed diminished opacification and narrowing of the distal branch of the M2 and M3 left middle cerebral artery. No aneurysm is seen. There is a origin of the right posterior cerebr al artery. The basilar, anterior cerebral, right middle cerebral artery, and posterior cerebral henry garcía do not demonstrate any significant stenosis. His carotid artery ultrasound showed mild plaque i n the carotid arteries without evidence of hemodynamically significant stenosis. The patient received aspirin 162 mg daily, Plavix 75 mg daily, Lipitor 80 mg at bedtime, folic acid 1 mg daily. He did have Lasix for fluid management. Lisinopril 40 mg daily with permissive hypertens ion. Reglan and Zofran for nausea, primidone for essential tremor along with Inderal 40 mg daily and Norvasc. Past Medical History: As noted. Social History: He is , lives with his daughter, Elaine, and son-in-law. Social History: Smoked in the past. No alcohol or intravenous drug use. Allergies: NO KNOWN DRUG ALLERGIES. Family History: Noncontributory. Review of Systems: Aside from mentioned, no fevers or chills. There is a confusion noted, some incoordination and aprax ia, which is difficulty with his ordinary activities such as dressing. He is also improved somewhat, but still slow to respond. Physical Examination: Vital Signs: Blood pressure 125/61, up to 159/81, pulse 77 to 82, temperature 97.2, oxygen saturatio n 93% to 98% on room air. Weight 219 pounds. Height 5 feet. General: He is actually in the restroom when I entered. He was able to ambulate using the IV pole a nd walked back to his bed and [id number] of his bed. HEENT: He does appear normocephalic, atraumatic. Sclerae anicteric. Oropharynx is pink and moist. Neck: Supple. Chest: Clear. Heart: Regular. Extremities: Show no significant edema, cyanosis, or clubbing. Despite the patient's findings, there is some incoordination and clumsiness on the right upper and lo wer extremity, but no significant weakness, just subtle weakness, slight decreased perception of sens ation in the right upper and lower extremities along the face compared to the left side. Again, gait , he ambulated and did actually very well with his ambulation. He was seen by the speech pathologist and given education. He was found to be fully independent and no further need for any issues and sw allowing showed no issues at all. Laboratory Studies: His complete blood count with differential is completely normal. INR 1.11. His electrolytes remarkable for slightly low sodium 134, potassium 4.0, chloride 104, carbon dioxide 26, BUN 11, creatinine 1.04. His glucose ranged from 124 to 159, calcium 8.7, magnesium 2.0, phosphorus 2.8, albumin 3.1. His LDL cholesterol 99, HDL cholesterol 26, his cholesterol HDL ratio 5.58, trigl ycerides 98. Urinalysis, 1+ glucose, trace protein, specific gravity greater than 1.030. Assessment: Mr. Garcia is a 68-year-old patient, who appears to have strokes in multiple left-side d vascular territories, although some severe anterior and posterior, it is unclear why the cardiac et iology was not involved the contralateral side. The patient does have the M1-M2 branch areas of comp romise on blood flow on MRI in the left cerebrum. Plan: 1.Continue with aspirin, Plavix, folic acid, statin, mild permissive hypertension .. 2.The patient may have outpatient physical therapy for his balance, gait, coordination, and sensatio n. He has actually returned, but should be cautious when ambulating, when driving or operating heavy machinery. After discharge, followup in Dr. Olivas's office within the month. CATERINA/ARNAV Voice ID: [id number] Report ID: [id number]
== END 2023-12-30 14:37 | disposition home or self-care (01) | DRG 65 ==
LOC: ER 13:32 → EDBD 13:32 → ERHOLD 16:11 → 4TH 18:09
PROVIDERS: ADMIT Hospitalist; ATTEND Hospitalist
DX: I63.9 Cerebral infarction, unspecified (principal); N17.9 Acute kidney failure, unspecified; E11.9 Type 2 diabetes mellitus without complications; I10 Essential (primary) hypertension; G31.9 Degenerative disease of nervous system, unspecified; E78.5 Hyperlipidemia, unspecified; R41.0 Disorientation, unspecified; R25.1 Tremor, unspecified; R29.700 NIHSS score 0; Z79.4 Long term (current) use of insulin; Z63.5 Disruption of family by separation and divorce; Z87.891 Personal history of nicotine dependence; Z79.899 Other long term (current) drug therapy
CPT/HCPCS: 36415; 70450; 70496; 70498; 70551; 71045; 80048; 80061; 80069; 80076; 81001; 82550; 82947; 83735; 84484; 85025; 85610; 85730; 92523; 93005; 93880; 96365; 96366; 97116; 97161; 99285; J2405; J2765; J7030; Q9967